=== PATIENT | female | born 1965 | race Caucasian/White ===

== ENCOUNTER 2019-09-02 06:53 | Day surgery (SDC) | payer BC ==
[~2019-09-02 06:53] MED LIST: Lactated Ringers 1,000 ML IV SCH
[2019-09-02] MEDS ORDERED: Propofol 200 MG/20 ML SDV IV ONE (06:54)
[2019-09-02] MEDS ORDERED: Simethicone Drops 40 MG/0.6 ML 30 ML Bottle ONE (07:58)
--- NOTE | 2019-09-02 08:12 | PCM.OPNOTE ---
- General Post-Op/Procedure Note Date of Surgery/Procedure: 09/02/19 Operative Procedure(s): c scope Findings: normal exam Pre Op Diagnosis: screening Post-Op Diagnosis: nl exam Anesthesia Technique: MAC Primary Surgeon: Timothy Delong Anesthesia Provider: Dilip Zaragoza Pathology: none Complications: None Condition: Good Free Text/Narrative:: see dictation
--- NOTE | 2019-09-02 13:47 | OR ---
DATE OF OPERATION: 09/02/2019 SURGEON: Timothy Delong MD PROCEDURE PERFORMED: Colonoscopy. PREOPERATIVE DIAGNOSIS: Need for screening C-scope. POSTOPERATIVE DIAGNOSIS: Normal exam. INDICATIONS FOR PROCEDURE: This is a 54-year-old white female who presents for screening colonoscopy. She was offered and accepted same. DESCRIPTION OF OPERATION: After an excellent IV sedation was administered, digital rectal exam was performed. No marked abnormality was noted. Flexible colonoscope was inserted and advanced to the cecum. Prep was excellent. The following findings were noted. Ascending colon, unremarkable. Transverse colon, unremarkable. Descending colon, unremarkable. Sigmoid and rectum, unremarkable. RECOMMENDATIONS: Repeat colonoscopy in 10 years. The patient tolerated the procedure well. /[id number] /MODL
== END 2019-09-02 08:49 | disposition home or self-care (01) ==
LOC: FB.SDS 06:53
PROVIDERS: ATTEND Surgery
DX: Z12.11 Encounter for screening for malignant neoplasm of colon (principal); Z80.0 Family history of malignant neoplasm of digestive organs; Z88.0 Allergy status to penicillin; Z88.6 Allergy status to analgesic agent; Z79.899 Other long term (current) drug therapy
CPT/HCPCS: 45378; A9270; J2704; J7120